=== PATIENT | female | born 1990 | race Caucasian/White ===

== ENCOUNTER → 2019-08-21 | Outpatient (CLI) | payer OTHER ==
--- NOTE | 2019-08-27 17:51 | HEMONC ---
[address] [address] HEMATOLOGY ONCOLOGY NOTE Name: KRZYSZTOF RODRIGUEZ Room: [facility]#: [id number] Admission: 08/21/19 Attend Phys: Theodore Jarquin MD Discharge: Date of : 86 Report #: [id number] THIS REPORT FOR: //name// CC: CHARLENE Atwood DATE OF SERVICE: 08/21/2019 CLINIC NOTE REASON FOR CONSULTATION: Microcytic anemia. REFERRING PHYSICIAN: Charlene Shaikh DO SUBJECTIVE: A 29-year-old female who has been evaluated because of symptoms of severe fatigue and exercise intolerance in addition to shortness of breath and palpitations. She reported lightheadedness. The patient denies any pica symptoms. Initial evaluation at primary care physician revealed microcytic anemia with hemoglobin of 9.1. Her ferritin was low as 10 ng/mL with a low saturation of 5. The patient reported heavy menstrual periods. She also had a gastric sleeve in addition to taking PPI. The patient denies any blood in stool. No hematuria. REVIEW OF SYSTEMS: All systems were reviewed. It was negative except the above. PAST MEDICAL HISTORY: Irregular heartbeat, hypertension, thyroid cancer status post resection followed by iodine treatment. depression/anxiety, OCD/bipolar. PAST SURGICAL HISTORY: Thyroidectomy, gastric sleeve, appendectomy, , cholecystectomy, tonsillectomy and adenoidectomy, wisdom tooth extraction. SOCIAL HISTORY: She smoked for a couple of years between the age of 14 and 16. She does not drink alcohol. Age of the first period 10, pregnancies 1, deliveries 3. ALLERGIES: No known allergies. MEDICATIONS: Levothyroxine 112 mcg p.o. daily, ____ 12 mg p.o. daily, hydroxyzine 50 mg p.o. daily, trazodone 50 mg p.o. twice a day, olanzapine 5 mg p.o. daily. PHYSICAL EXAMINATION: VITAL SIGNS: Today, blood pressure is 117/78, pulse is 85, respirations 16, temperature is 97.0, sat is 99% [place] [address] HEMATOLOGY ONCOLOGY NOTE Name: JOHN RODRIGUEZN Melinda Room: [facility]#: [id number] Admission: 08/21/19 Attend Phys: Theodore Jarquin MD Discharge: Date of : 86 Report #: [id number] GENERAL: The patient was sitting in chair, was not in acute distress. LUNGS: Clear to auscultations bilaterally. HEART: Tachycardic, but regular. S1, S2 within normal limits. ABDOMEN: Soft, nontender, nondistended. Bowel sounds positive ASSESSMENT AND PLAN: A 29-year-old female who has been evaluated because of symptoms of fatigue and palpitations. Workup revealed microcytic anemia consistent with iron deficiency. The etiology is due to have chronic blood loss through menorrhagia in addition to possible decreased absorption of iron due to gastric sleeve/PPI. RECOMMENDATIONS: The patient reported intermittent nausea with oral iron. I would like to arrange for intravenous Feraheme 510 mg intravenously x 2. We will obtain anemia workup by checking B12, folate and hemolysis parameters and peripheral blood smear. Follow up in 5 weeks with repeated labs before her next appointment. <ELECTRONICALLY SIGNED> By: Theodore Jarquin MD 08/27/19 1751 [id number] Jarquin MD /nt
== END ==
LOC: M.RTH 10:45
DX: D50.9 Iron deficiency anemia, unspecified (principal); I10 Essential (primary) hypertension; F32.9 Major depressive disorder, single episode, unspecified; F41.9 Anxiety disorder, unspecified; Z88.8 Allergy status to other drugs, medicaments and biological substances; Z79.899 Other long term (current) drug therapy

== ENCOUNTER → 2019-08-22 | Outpatient (CLI) | payer OTHER ==
[2019-08-21 11:54] LABS: HEMATOCRIT 30.2 % (37.0-47.0); HEMOGLOBIN 9.4 gm/dL (12.0-15.0); MCH 17.7 pg (26.0-34.0); MCHC 31.1 g/dL (28.0-37.0); MCV 56.9 fL (80.0-100.0); MPV 8.2 fl. (7.2-11.1); NUCLEATED RBCS 0 /100WBC; PLATELET COUNT* 393 thou/uL (150-400); RDW-CV 17.8 % (10.5-14.5); WBC 5.2 thou/uL (4.0-11.0)
[2019-08-21 12:09] LABS: ALBUMIN 3.5 g/dL (3.4-5.0); CALCIUM 8.6 mg/dL (8.5-10.1); CREATININE 0.8 mg/dL (0.6-1.3); POTASSIUM 4.4 mmol/L (3.5-5.1); TOTAL BILIRUBIN 0.3 mg/dL (<0.1-1.0); TOTAL PROTEIN 7.1 g/dL (6.4-8.2)
[2019-08-21 12:37] LABS: ABSOLUTE BASOPHILS 0.2 thou/uL (0.0-0.2); ABSOLUTE LYMPHOCYTES 1.8 thou/uL (0.8-5.3); ABSOLUTE MONOCYTES 0.3 thou/uL (0.0-1.2); PLATELET ESTIMATE ADEQUATE
[2019-08-21 12:38] LABS: HYPOCHROMASIA 3+
[2019-08-21 12:39] LABS: ANISOCYTOSIS 3+; MICROCYTES 3+
[2019-08-21 12:40] LABS: OVALOCYTES Occasional
[2019-08-22 10:10] LABS: HEMOGLOBIN 9.2 g/dL (11.1-15.9)
== END ==
LOC: M.LAB 13:21
PROVIDERS: Internal Medicine
DX: D50.9 Iron deficiency anemia, unspecified (principal)

== ENCOUNTER → 2019-08-28 | Outpatient (CLI) | payer OTHER ==
[2019-08-28 10:10] VITALS: BP 97/56
--- NOTE | 2019-08-28 11:28 | NUR ---
ARRIVED AMBULATORY. MADE SELF COMFORTABLE IN RECLINER. INFUSION COMPLETED AND TOLERATED WELL. DENIES QUESTIONS OR NEEDS AT DISCHARGE.
== END ==
LOC: M.INFUS 05:09
DX: D50.9 Iron deficiency anemia, unspecified (principal)

== ENCOUNTER → 2019-09-04 | Outpatient (CLI) | payer OTHER ==
[2019-09-04 11:25] VITALS: BP 117/66
== END ==
LOC: M.INFUS 03:39
DX: D50.9 Iron deficiency anemia, unspecified (principal)

== ENCOUNTER → 2019-10-02 | Outpatient (CLI) | payer OTHER ==
--- NOTE | 2019-10-07 14:10 | HEMONC ---
[address] [address] HEMATOLOGY ONCOLOGY NOTE Name: ISSAC PAT Room: [facility]#: [id number] Admission: 10/02/19 Attend Phys: Theodore Jarquin MD Discharge: Date of : 86 Report #: [id number] THIS REPORT FOR: //name// CC: Charlene Wynn DATE OF SERVICE: 10/02/2019 PRIMARY CARE PHYSICIAN: Charlene Shaikh DO REASON FOR CONSULTATION: Iron-deficiency anemia. SUBJECTIVE: A 29-year-old female who has been evaluated today in the clinic after she received intravenous iron. The last dose was the end of August. The patient reported improvement of her fatigue, energy level and ice cravings. She continues to have headaches. The patient reported that she is still having heavy menstrual periods. I reviewed her labs, which showed hemoglobin improved from 9.2-12.8. In addition to that, ferritin improved from 5-139. REVIEW OF SYSTEMS: All systems were reviewed. It was negative except the above. PAST MEDICAL, SOCIAL, AND FAMILY HISTORY: Unchanged from last visit. PHYSICAL EXAMINATION: GENERAL: The patient was sitting in chair. She was awake, alert, oriented x 3. Cranial nerves are grossly intact. LABORATORY DATA: On 09/28/2019, WBC 4.7, hemoglobin 12.8, platelets 244, MCV 70.5, previously it was 56.9, TIBC 288, saturation 33, ferritin 139. ASSESSMENT AND PLAN: A 29-year-old female who has been diagnosed with iron-deficiency anemia due to menorrhagia. She received intravenous iron with significant improvements in her symptoms and iron levels with hemoglobin. At this point, I would like to continue to monitor the patient in 4 months. We will repeat labs at that time. The patient was advised to call the clinic if she developed a recurrence of her symptoms. <ELECTRONICALLY SIGNED> By: Theodore Jarquin MD 10/07/19 1410 [id number] [id number] Jarquin MD /nt
== END ==
LOC: M.RTH 09-18 10:00
DX: D50.9 Iron deficiency anemia, unspecified (principal)